=== PATIENT | female | born 1995 | race Caucasian/White ===

== ENCOUNTER 2017-01-29 11:33 | Emergency (ER) | payer MEDICAID, OTHER ==
[~2017-01-29] VITALS: Ht 165.1 cm; Wt 56.5 kg
[~2017-01-29 11:33] MED LIST: TRAZ50TA12 PO
[2017-01-29 11:34] VITALS: BP 118/69; PULSE 95; RESP 18; TEMP 98.3; O2SAT 100
[2017-01-29] MEDS ORDERED: ACETAMINOPHEN 325 MG TAB PO ONE (12:15)
[2017-01-29] MEDS ORDERED: SODIUM CHLOR 0.9% 1000 ML INJ 1,000 ML IV ONE (12:15)
--- NOTE | 2017-01-29 12:30 | PD ---
HPI Chief Complaint: Headache Time Seen by Provider: 11:41 Travel History International Travel<30 days: No Contact w/Intl Traveler<30days: No Traveled to known affect area: No History of Present Illness HPI 21-year-old 15 week female presents to the emergency room for evaluation of headache. Patient states for the past week she has had intermittent headaches. Current headache started last night and has been constant. It is localized to bilateral temples. Worse with light and sound. She has associated nausea without vomiting. States it is different from her typical morning sickness. He took 200 mg ibuprofen last night but has not taken anything else for pain. She called her OB this morning and the office recommended she come to the emergency room for evaluation. Patient states she has not had any care thus far but has been taking vitamins. She denies any vaginal bleeding or hematuria. She reports associated urgency especially in the morning and some pelvic pressure upon urination. Denies chronic medical conditions or daily medications. PFSH Past Medical History Anxiety: Yes Depression: Yes Cancer: No Cardiovascular Problems: No Diabetes: No Diminished Hearing: No Headaches: No Psychiatric: Yes (patient reports a history of anxiety) Seizures: No ?: : 2 Para: 1 : 0 Social History Alcohol Use: No Tobacco Use: No Substance Use: No (Denies abuse; [place] recreationally once every 2-3 weeks. ) Allergies-Medications (Allergen,Severity, Reaction): Coded Allergies: No Known Allergies (Unverified , 03/12/16) Reported Meds & Prescriptions Reported Meds & Active Scripts Active Macrobid (Nitrofurantoin Monohydrate Macrocrystals) 100 Mg Capsule 100 Mg PO BID 7 Days Trazodone (Trazodone HCl) 50 Mg Tab 100 Mg PO HS Review of Systems Except as stated in HPI: all other systems reviewed are Neg Physical Exam Narrative GENERAL: Well-nourished, well-developed female in no acute distress. Afebrile. Ambulatory. Resting comfortably in bed. SKIN: Focused skin assessment warm/dry. HEAD: Normocephalic. EYES: No scleral icterus. No injection or drainage. NECK: Supple, trachea midline. No JVD or lymphadenopathy. CARDIOVASCULAR: Regular rate and rhythm without murmurs, gallops, or rubs. RESPIRATORY: Breath sounds equal bilaterally. No accessory muscle use. GASTROINTESTINAL: Abdomen soft, non-tender, nondistended. Gravid. NEUROLOGICAL: Awake and alert. Cranial nerves II through XII intact. Motor and sensory grossly within normal limits. Five out of 5 muscle strength in all muscle groups. Normal speech. No pronator drift in upper lower extremities. GENITOURINARY: Examined in the presence of the nurse and with sterile gloves. Normal external genitalia without lesions or erythema. Vaginal vault without blood or drainage. Cervical os was closed without drainage. No cervical motion tenderness. Uterus nontender and nonenlarged. Bilateral adnexa nontender without masses. Data Data Last Documented VS Vital Signs Date Time Temp Pulse Resp B/P (MAP) Pulse Ox O2 Delivery O2 Flow Rate FiO2 01/29/17 11:34 98.3 95 18 118/69 (85) 100 Room Air Orders Orders Gc And Chlamydia Pcr (01/29/17 12:01) Wet Prep Profile (01/29/17 12:01) Urinalysis - C+S If Indicated (01/29/17 12:01) Acetaminophen (Tylenol) (01/29/17 12:15) Sodium Chlor 0.9% 1000 Ml Inj (Ns 1000 M (01/29/17 12:15) Iv Access Insert/Monitor (01/29/17 12:01) Ed Discharge Order (01/29/17 14:07) Labs Laboratory Tests Test 01/29/17 12:35 01/29/17 13:22 Urine Color YELLOW Urine Turbidity HAZY Urine pH 6.5 Urine Specific Brooks 1.012 Urine Protein NEG mg/dL Urine Glucose (UA) NEG mg/dL Urine Ketones NEG mg/dL Urine Occult Blood NEG Urine Nitrite NEG Urine Bilirubin NEG Urine Urobilinogen LESS THAN 2.0 MG/DL Urine Leukocyte Esterase SMALL Urine RBC 1 /hpf Urine WBC 1 /hpf Urine Squamous Epithelial Cells 5 /hpf Urine Amorphous Sediment RARE Urine Bacteria RARE /hpf Urine Mucus FEW /lpf Microscopic Urinalysis Comment CULT NOT INDICATED Clue Cells (Wet Prep) NONE SEEN Vaginal Trichomonas (Wet Prep) NONE SEEN Vaginal Yeast (Wet Prep) NONE SEEN MDM Medical Decision Making Medical Screen Exam Complete: Yes Emergency Medical Condition: Yes Medical Record Reviewed: Yes Differential Diagnosis UTI, STD, pyelonephritis, sinus headache, tension headache Narrative Course 21-year-old 15 week female presents to the emergency room for evaluation of unremitting, frontal headache and pelvic pressure with urination for the past one week. Physical exam is reassuring. Vital signs stable. Patient is sitting up, communicating without difficulty, in bright room. No focal neurological deficits. Normal speech. No indication for emergent imaging of the brain at this time. Likely tension headache related to . Patient was given Tylenol for pain. Abdominal exam is benign; gravid, nontender, abdomen. Bedside ultrasound shows active intrauterine with heart rate of 146. Pelvic exam reveals significant white discharge. No tenderness. GC and chlamydia ordered and pending. Patient should follow up with the results and inform her stockroom associate at her next appointment in one week. Wet prep is negative. UA shows little evidence of infection but because patient is symptomatic and she will be treated with Macrobid. Will return for worsening symptoms. She understands and agrees to plan. Diagnosis Primary Impression: Acute headache Qualified Codes: G44.209 - Tension-type headache, unspecified, not intractable Referrals: [employer] Laboratory Technician Additional Instructions: Rest and drink plenty of fluids. Take Tylenol as directed, as needed for pain. Follow-up with stockroom associate. Return to the emergency room for worsening symptoms. Scripts Nitrofurantoin Monohydrate Macrocrystals (Macrobid) 100 Mg Capsule 100 MG PO BID for Infection for 7 Days, #14 CAP 0 Refills Prov: Ana Lilia Ibrahim DO 01/29/17 Disposition: 01 DISCHARGE HOME Condition: Stable Tonie Marques Jan 29, 2017 12:30
[2017-01-29 13:10] LABS: BACTERIA, URINE RARE /hpf; BLOOD, URINE NEG (NEG); COMMENT (UR) CULT NOT INDICATED; CULTURE IF INDICATED CULT NOT INDICATED; GLUCOSE,URINE NEG (NEG); KETONE, URINE NEG (NEG); MUCUS URINE FEW /lpf (OCC); NITRITE,URINE NEG (NEG); PH, URINE 6.5 (5.0-8.5); SQUAMOUS EPITHELIAL CELL URINE 5 /hpf (0-5); URINE COLOR YELLOW (YELLW/STRAW)
[2017-01-29] MEDS ORDERED: MACR100C2 PO (13:33)
[2017-01-29 15:55] LABS: CHLAMYDIA PCR NOT DETECTED (NOT DETECT); NEISSERIA PCR NOT DETECTED (NOT DETECT)
== END 2017-01-29 18:52 | disposition home or self-care (01) ==
LOC: NEPD 11:33
DX: O99.352 Diseases of the nervous system complicating pregnancy, second trimester (principal); G44.209 Tension-type headache, unspecified, not intractable; Z3A.15 15 weeks gestation of pregnancy
CPT/HCPCS: 81001; 87210; 87491; 87591; 99283; J7030